=== PATIENT | female | born 1970 | race Caucasian/White ===

== ENCOUNTER 2017-07-15 06:17 | Emergency (ER) | payer MEDICARE ==
[2017-07-15 06:56] LABS: BASOPHILS 0.2 % (0-2); EOSINOPHILS 1.2 % (0-7); HEMATOCRIT 45.2 % (36.0-48.0); HEMOGLOBIN 15.3 g/dL (12-16); IMMATURE GRANULOCYTES 0.2 % (0-5); LYMPHOCYTES 26.5 % (15-50); MCH 32.1 pg (26.0-34.0); MCHC 33.8 g/dL (31.0-37.0); MCV 94.8 fL (80.0-100.0); MEAN PLATELET VOLUME 8.9 fL (7.4-10.4); MONOCYTES 9.1 % (2-11); NEUTROPHILS 62.8 % (40-80); PLATELET COUNT 336 10x3/uL (130-400); RBC 4.77 10x6/uL (4.00-5.40); RDW 12.7 % (11.5-14.5); WBC 5.9 10x3/uL (4.8-10.8)
[2017-07-15 07:07] LABS: ALBUMIN 3.4 g/dL (3.4-5.0); ALKALINE PHOSPHATASE 98 U/L (46-116); ALT (SGPT) 82 U/L (10-68); BILIRUBIN - TOTAL 0.55 mg/dL (0.2-1.3); CALC OSMOLALITY 267 mosm/kg (275-300); CALCIUM 8.9 mg/dL (8.5-10.1); CARBON DIOXIDE 26.1 mmol/L (21.0-32.0); CHLORIDE - SERUM 102 mmol/L (98-107); CREATININE - SERUM 0.6 mg/dL (0.6-1.3); GLUCOSE 77 mg/dL (74-106); SODIUM 135 mmol/L (136-145); UREA NITROGEN 10 mg/dL (7-18); eGFR NON AFRICAN AMERICAN > 90 mL/min (90-120)
== END 2017-07-15 08:03 | disposition home or self-care (01) ==
LOC: D.ER 06:17
PROVIDERS: Emergency Medicine
DX: K52.9 Noninfective gastroenteritis and colitis, unspecified (principal); R51 Headache; F17.200 Nicotine dependence, unspecified, uncomplicated

== ENCOUNTER 2017-09-27 13:08 | Emergency (ER) | payer MEDICARE ==
[2017-09-27 13:44] LABS: BASOPHILS 0.3 % (0-2); EOSINOPHILS 0.6 % (0-7); HEMATOCRIT 47.6 % (36.0-48.0); HEMOGLOBIN 16.1 g/dL (12-16); IMMATURE GRANULOCYTES 0.1 % (0-5); LYMPHOCYTES 44.6 % (15-50); MCH 31.9 pg (26.0-34.0); MCHC 33.8 g/dL (31.0-37.0); MCV 94.4 fL (80.0-100.0); MEAN PLATELET VOLUME 8.7 fL (7.4-10.4); MONOCYTES 7.7 % (2-11); NEUTROPHILS 46.7 % (40-80); PLATELET COUNT 293 10x3/uL (130-400); RBC 5.04 10x6/uL (4.00-5.40); RDW 13.6 % (11.5-14.5); WBC 6.7 10x3/uL (4.8-10.8)
[2017-09-27 13:51] LABS: APPEARANCE CLEAR (CLEAR); BILIRUBIN NEGATIVE (NEGATIVE); COLOR YELLOW (YELLOW); GLUCOSE NEGATIVE (NEGATIVE); KETONE NEGATIVE (NEGATIVE); NITRITE NEGATIVE (NEGATIVE); PH 5.5 (5.0-6.0); PROTEIN NEGATIVE (NEGATIVE); UROBILINOGEN NORMAL (NORMAL)
[2017-09-27 13:59] LABS: ALBUMIN 4.1 g/dL (3.4-5.0); ALKALINE PHOSPHATASE 88 U/L (46-116); ALT (SGPT) 98 U/L (10-68); BILIRUBIN - TOTAL 0.21 mg/dL (0.2-1.3); CALC OSMOLALITY 281 mosm/kg (275-300); CALCIUM 8.8 mg/dL (8.5-10.1); CARBON DIOXIDE 29.4 mmol/L (21.0-32.0); CHLORIDE - SERUM 106 mmol/L (98-107); CREATININE - SERUM 0.6 mg/dL (0.6-1.3); GLUCOSE 82 mg/dL (74-106); POTASSIUM - SERUM 3.7 mmol/L (3.5-5.1); PROTEIN - SERUM 7.4 g/dL (6.4-8.2); SODIUM 143 mmol/L (136-145); UREA NITROGEN 7 mg/dL (7-18); eGFR NON AFRICAN AMERICAN > 90 mL/min (90-120)
[2017-09-27 14:18] LABS: UDS - AMPHET NEGATIVE QUAL (NEGATIVE); UDS - BARB NEGATIVE QUAL (NEGATIVE); UDS - BENZO NEGATIVE QUAL (NEGATIVE); UDS - COCAINE NEGATIVE QUAL (NEGATIVE); UDS - OPIATE NEGATIVE QUAL (NEGATIVE); UDS - PCP NEGATIVE QUAL (NEGATIVE); UDS - THC NEGATIVE QUAL (NEGATIVE)
== END 2017-09-27 18:14 | disposition home or self-care (01) ==
LOC: D.ER 13:08
PROVIDERS: Family Medicine
DX: F10.129 Alcohol abuse with intoxication, unspecified (principal); R51 Headache

== ENCOUNTER 2018-06-07 15:52 | Emergency (ER) | payer MEDICARE ==
[~2018-06-07] VITALS: Ht 177.8 cm; Wt 63.6 kg
[2018-06-07 16:06] VITALS: Ht 177.8 cm; Wt 63.6 kg
[2018-06-07] MEDS ORDERED: CLONAZEPAM1 MG/TAB (16:10)
[2018-06-07 19:15] VITALS: BP 141/80
== END 2018-06-07 19:16 | disposition home or self-care (01) ==
LOC: D.ER 15:52
DX: S00.83XA Contusion of other part of head, initial encounter (principal); S20.219A Contusion of unspecified front wall of thorax, initial encounter; S30.1XXA Contusion of abdominal wall, initial encounter; Y04.2XXA Assault by strike against or bumped into by another person, initial encounter; Y93.89 Activity, other specified; Y92.89 Other specified places as the place of occurrence of the external cause; M54.2 Cervicalgia; R07.9 Chest pain, unspecified; M54.5 Low back pain

== ENCOUNTER 2018-07-10 16:13 | Emergency (ER) | payer MEDICARE ==
[~2018-07-10] VITALS: Ht 177.8 cm; Wt 64.5 kg
[~2018-07-10 16:13] MED LIST: CLONAZEPAM1 MG/TAB
[2018-07-10 16:20] VITALS: Ht 177.8 cm; Wt 64.5 kg
[2018-07-10 16:58] LABS: APPEARANCE CLEAR (CLEAR); BILIRUBIN NEGATIVE (NEGATIVE); COLOR YELLOW (YELLOW); GLUCOSE NEGATIVE (NEGATIVE); KETONE NEGATIVE (NEGATIVE); NITRITE NEGATIVE (NEGATIVE); PROTEIN NEGATIVE (NEGATIVE); UROBILINOGEN NORMAL (NORMAL)
[2018-07-10 17:02] LABS: BASOPHILS 0.2 % (0-2); EOSINOPHILS 1.9 % (0-7); HEMATOCRIT 42.6 % (36.0-48.0); HEMOGLOBIN 14.5 g/dL (12-16); IMMATURE GRANULOCYTES 0.1 % (0-5); LYMPHOCYTES 32.7 % (15-50); MCH 31.7 pg (26.0-34.0); MCV 93.2 fL (80.0-100.0); MONOCYTES 6.4 % (2-11); NEUTROPHILS 58.7 % (40-80); RBC 4.57 10x6/uL (4.00-5.40); RDW 12.7 % (11.5-14.5); WBC 8.6 10x3/uL (4.8-10.8)
[2018-07-10 17:05] LABS: UDS - AMPHET NEGATIVE QUAL (NEGATIVE); UDS - BARB NEGATIVE QUAL (NEGATIVE); UDS - BENZO NEGATIVE QUAL (NEGATIVE); UDS - COCAINE NEGATIVE QUAL (NEGATIVE); UDS - OPIATE NEGATIVE QUAL (NEGATIVE); UDS - PCP NEGATIVE QUAL (NEGATIVE); UDS - THC NEGATIVE QUAL (NEGATIVE)
[2018-07-10 17:11] LABS: PLATELET COUNT 227 10x3/uL (130-400)
[2018-07-10 17:16] LABS: ALBUMIN 3.8 g/dL (3.4-5.0); ALKALINE PHOSPHATASE 81 U/L (46-116); ALT (SGPT) 47 U/L (10-68); CALC OSMOLALITY 280 mosm/kg (275-300); CALCIUM 8.7 mg/dL (8.5-10.1); CARBON DIOXIDE 21.7 mmol/L (21.0-32.0); CHLORIDE - SERUM 106 mmol/L (98-107); CREATININE - SERUM 0.6 mg/dL (0.6-1.3); GLUCOSE 89 mg/dL (74-106); LIPASE 180 U/L (73-393); POTASSIUM - SERUM 4.4 mmol/L (3.5-5.1); SODIUM 141 mmol/L (136-145); UREA NITROGEN 16 mg/dL (7-18); eGFR NON AFRICAN AMERICAN > 90 mL/min (90-120)
[2018-07-10 17:17] LABS: BILIRUBIN - TOTAL 0.09 mg/dL (0.2-1.3); C-REACTIVE PROTEIN < 0.2 mg/dL (0.0-0.9)
[2018-07-10 17:51] VITALS: BP 118/87
== END 2018-07-10 17:51 | disposition home or self-care (01) ==
LOC: D.ER 16:13
PROVIDERS: Family Medicine
DX: R51 Headache (principal); R11.0 Nausea; R42 Dizziness and giddiness; F17.200 Nicotine dependence, unspecified, uncomplicated

== ENCOUNTER 2018-08-18 16:25 | Emergency (ER) | payer MEDICARE ==
[~2018-08-18] VITALS: Ht 177.8 cm; Wt 68.2 kg
[2018-08-18 16:32] VITALS: Ht 177.8 cm; Wt 68.2 kg
[2018-08-18] MEDS ORDERED: ZOFRAN4 MG PO (16:34)
[2018-08-18 18:02] LABS: BASOPHILS 0.2 % (0-2); EOSINOPHILS 3.4 % (0-7); HEMATOCRIT 41.5 % (36.0-48.0); IMMATURE GRANULOCYTES 0.1 % (0-5); LYMPHOCYTES 38.8 % (15-50); MCH 31.9 pg (26.0-34.0); MCHC 33.7 g/dL (31.0-37.0); MCV 94.5 fL (80.0-100.0); MEAN PLATELET VOLUME 8.6 fL (7.4-10.4); MONOCYTES 6.7 % (2-11); NEUTROPHILS 50.8 % (40-80); PLATELET COUNT 250 10x3/uL (130-400); RBC 4.39 10x6/uL (4.00-5.40); RDW 13.7 % (11.5-14.5); WBC 8.3 10x3/uL (4.8-10.8)
[2018-08-18 18:16] LABS: ALBUMIN 3.7 g/dL (3.4-5.0); ALKALINE PHOSPHATASE 85 U/L (46-116); ALT (SGPT) 48 U/L (10-68); BILIRUBIN - TOTAL 0.15 mg/dL (0.2-1.3); CALC OSMOLALITY 286 mosm/kg (275-300); CALCIUM 8.5 mg/dL (8.5-10.1); CARBON DIOXIDE 27.2 mmol/L (21.0-32.0); CHLORIDE - SERUM 107 mmol/L (98-107); CREATININE - SERUM 0.7 mg/dL (0.6-1.3); GLUCOSE 92 mg/dL (74-106); LIPASE 221 U/L (73-393); POTASSIUM - SERUM 4.1 mmol/L (3.5-5.1); PROTEIN - SERUM 7.2 g/dL (6.4-8.2); SODIUM 144 mmol/L (136-145); UREA NITROGEN 13 mg/dL (7-18); eGFR NON AFRICAN AMERICAN > 90 mL/min (90-120)
[2018-08-18] MEDS ORDERED: FIORICET/ESGIC1 TAB PO (18:43)
[2018-08-18 19:14] VITALS: BP 109/73
== END 2018-08-18 19:17 | disposition home or self-care (01) ==
LOC: D.ER 16:25
PROVIDERS: Family Medicine
DX: G43.909 Migraine, unspecified, not intractable, without status migrainosus (principal); R11.0 Nausea; F17.200 Nicotine dependence, unspecified, uncomplicated

== ENCOUNTER 2019-05-31 14:02 | Inpatient (IN) | payer MEDICARE ==
[~2019-05-31] VITALS: Ht 177.8 cm; Wt 64.1 kg
[~2019-05-31 14:02] MED LIST changes: +FIORICET/ESGIC1 TAB PO; +ZOFRAN4 MG PO
--- NOTE | 2019-05-31 15:58 | NUR ---
BLANKET PROVIDED FOR COMFORT AT THIS TIME.
--- NOTE | 2019-05-31 16:25 | NUR ---
PT LEAVING ED FOR ORDERED CT SCAN. NO SIGNS OF DISTRESS NOTED WHEN LEAVING.
[2019-05-31 17:36] LABS: BASOPHILS 0.1 % (0-2); EOSINOPHILS 0.1 % (0-7); HEMATOCRIT 42.5 % (36.0-48.0); HEMOGLOBIN 14.6 g/dL (12-16); IMMATURE GRANULOCYTES 0.3 % (0-5); LYMPHOCYTES 6.3 % (15-50); MCH 31.2 pg (26.0-34.0); MCHC 34.4 g/dL (31.0-37.0); MCV 90.8 fL (80.0-100.0); MEAN PLATELET VOLUME 8.9 fL (7.4-10.4); MONOCYTES 1.8 % (2-11); NEUTROPHILS 91.4 % (40-80); PLATELET COUNT 256 10x3/uL (130-400); RBC 4.68 10x6/uL (4.00-5.40); RDW 13.5 % (11.5-14.5); WBC 14.4 10x3/uL (4.8-10.8)
[2019-05-31 17:46] LABS: APTT 25.4 SECONDS (22.8-39.4); INR 0.91 (0.85-1.17); PROTIME 11.8 SECONDS (11.6-15.0)
[2019-05-31 17:55] LABS: ALBUMIN 3.8 g/dL (3.4-5.0); ALKALINE PHOSPHATASE 91 U/L (46-116); ALT (SGPT) 29 U/L (10-68); BILIRUBIN - TOTAL 0.19 mg/dL (0.2-1.3); CALC OSMOLALITY 277 mosm/kg (275-300); CALCIUM 9.1 mg/dL (8.5-10.1); CARBON DIOXIDE 26.3 mmol/L (21.0-32.0); CHLORIDE - SERUM 104 mmol/L (98-107); CREATININE - SERUM 0.8 mg/dL (0.6-1.3); GLUCOSE 120 mg/dL (74-106); PROTEIN - SERUM 6.5 g/dL (6.4-8.2); SODIUM 137 mmol/L (136-145); UREA NITROGEN 21 mg/dL (7-18); eGFR NON AFRICAN AMERICAN 81 mL/min (90-120)
[2019-05-31 18:08] LABS: CKMB 0.9 U/L (0.0-3.6); CREATINE KINASE 33 UL (21-215)
[2019-05-31 18:09] LABS: C-REACTIVE PROTEIN < 0.2 mg/dL (0.0-0.9); TROPONIN-I < 0.017 ng/mL (0.000-0.060)
--- NOTE | 2019-05-31 18:20 | NUR ---
IMMOBILIZER APPLIED TO THE RLE. PULSES PRESENT AFTER IMMOBILIZER APPLIED.
--- NOTE | 2019-05-31 20:00 | NUR ---
REC'D IN ROOM 2218 PER W/C FROM ER DEPT A 48 Y/O W/FE PER SERVICES DR. GIRALDO/ZHANNA WITH DX RT KNEE PAIN. IV PATENT RT FOREARM OF NS AT 125CC'S/HR DRIVER RETRAINING INSTRUCTOR OF MORPHINE IN USE WITH SETTINGS AT 1MG Q10MIN W/10MG Q4H L/O. BRACE TO RT LEG IN PLACE.
--- NOTE | 2019-05-31 20:45 | NUR ---
REQUESTING A BOLUS AND ZOFRAN. MORPHINE 2MG BOLUS GIVEN PER FLY RAISER LOCKSTITCH MACHINE AND ZOFRAN 4MG IVP GIVEN FOR NAUSEA.
--- NOTE | 2019-05-31 21:15 | NUR ---
REFUSES COLACE. WNATS DISCONNECTED FROM MACHINE TO GO OUTSIDE TO SMOKE.UP AD SHIRIN IN HALLWAY TO SMOKING AREA.
--- NOTE | 2019-05-31 22:15 | NUR ---
RETURNS TO ROOM RECONNECTED TO IV INFUSION. VOIDS WELL.
[2019-05-31 23:00] VITALS: BP 136/80; BMI 20.2
[2019-06-01] VITALS: BP 136/57
--- NOTE | 2019-06-01 | NUR ---
REMAIN AWAKE ALERT PRESSING BONDERIZER OPERATOR AND GETTING INTO LOCKOUT. EXPLAINED AGAIN HOW BONDERIZER OPERATOR OPERATES.
[2019-06-01 00:07] LABS: APPEARANCE CLEAR (CLEAR); COLOR YELLOW (YELLOW)
[2019-06-01 00:08] LABS: BILIRUBIN NEGATIVE (NEGATIVE); GLUCOSE NEGATIVE (NEGATIVE); KETONE NEGATIVE (NEGATIVE); NITRITE NEGATIVE (NEGATIVE); PROTEIN NEGATIVE (NEGATIVE); SPECIFIC GRAVITY 1.015 (1.005-1.020); UROBILINOGEN NORMAL (NORMAL)
--- NOTE | 2019-06-01 03:00 | NUR ---
AWAKE DISCONNECTED FROM IV. UP AD SHIRIN TO SMOKING AREA.
--- NOTE | 2019-06-01 03:35 | NUR ---
RETURNS TO ROOM IV RECONNECTED.
--- NOTE | 2019-06-01 03:49 | NUR ---
C/O NAUSEA ZOFRAN 4MG IVP GIVEN FOR RELIEF. CONTINUES TO USE THE ADMINISTRATOR SOCIAL WELFARE.
[2019-06-01 04:00] VITALS: BP 130/71
--- NOTE | 2019-06-01 05:02 | NUR ---
AWAKE ALERT SITTING UPRIGHT IN BED.
[2019-06-01 06:02] LABS: BASOPHILS 0.1 % (0-2); EOSINOPHILS 0.4 % (0-7); HEMATOCRIT 39.5 % (36.0-48.0); HEMOGLOBIN 13.3 g/dL (12-16); IMMATURE GRANULOCYTES 0.3 % (0-5); LYMPHOCYTES 14.1 % (15-50); MCH 31.2 pg (26.0-34.0); MCHC 33.7 g/dL (31.0-37.0); MCV 92.7 fL (80.0-100.0); MEAN PLATELET VOLUME 9.2 fL (7.4-10.4); MONOCYTES 6.6 % (2-11); NEUTROPHILS 78.5 % (40-80); PLATELET COUNT 254 10x3/uL (130-400); RBC 4.26 10x6/uL (4.00-5.40); RDW 13.7 % (11.5-14.5); WBC 16.5 10x3/uL (4.8-10.8)
[2019-06-01 06:22] LABS: CALC OSMOLALITY 275 mosm/kg (275-300); CALCIUM 8.3 mg/dL (8.5-10.1); CARBON DIOXIDE 26.2 mmol/L (21.0-32.0); CHLORIDE - SERUM 105 mmol/L (98-107); CREATININE - SERUM 0.7 mg/dL (0.6-1.3); GLUCOSE 84 mg/dL (74-106); MAGNESIUM - SERUM 1.7 mg/dL (1.8-2.4); PHOSPHOROUS 2.7 mg/dL (2.5-4.9); POTASSIUM - SERUM 4.3 mmol/L (3.5-5.1); SODIUM 138 mmol/L (136-145); UREA NITROGEN 16 mg/dL (7-18); eGFR NON AFRICAN AMERICAN > 90 mL/min (90-120)
--- NOTE | 2019-06-01 07:19 | NUR ---
ALERT AND ORIENTED. LUNGS CLEAR BILATERALLY IN ALL RITCHIE. HEART SOUNDS S1 AND S2 HEARD IN ALL RITCHIE. BOWEL SOUNDS ACTIVE X 4. SKIN INTACT WITHOUT REDNESS. PAIN IN RIGHT KNEE. STATES MORPHINE PAIN PUMP NOT WORKING. WANTS TO CHANGE MEDICATIONS. WILL CALL DELICATESSEN MANAGER. DENIES FURTHER NEEDS. IV TO RFA PATENT WITHOUT REDNESS. BED LOW. CALL SILVA AND PERSONAL ITEMS IN REACH. WILL CONTINUE TO MONITOR.
[2019-06-01 07:59] VITALS: BP 138/86
[2019-06-01 10:30] VITALS: Ht 177.8 cm; Wt 64.1 kg
--- NOTE | 2019-06-01 10:50 | NUR ---
CONSENTS FOR PROCEDURE SIGNED AND ON CHART. DENIES FURTHER QUESTIONS.
--- NOTE | 2019-06-01 11:30 | NUR ---
SITTING IN CHAIR AT BEDSIDE. DENIES NEEDS. WILL CONTINUE TO MONITOR,.
[2019-06-01 11:55] VITALS: BP 124/82
--- NOTE | 2019-06-01 14:16 | NUR ---
RESTING IN BED. DENIES PAIN. DENIES NEEDS. WILL CONTINUE TO MONITOR.
[2019-06-01 15:31] LABS: UDS - AMPHET NEGATIVE QUAL (NEGATIVE); UDS - BARB NEGATIVE QUAL (NEGATIVE); UDS - BENZO NEGATIVE QUAL (NEGATIVE); UDS - COCAINE NEGATIVE QUAL (NEGATIVE); UDS - OPIATE POSITIVE QUAL (NEGATIVE); UDS - PCP NEGATIVE QUAL (NEGATIVE); UDS - THC NEGATIVE QUAL (NEGATIVE)
[2019-06-01 16:01] VITALS: BP 123/71
--- NOTE | 2019-06-01 17:14 | NUR ---
RESTING IN BED. DENIES PAIN. DENIES NEEDS. WILL CONTINUE TO MONITOR.
--- NOTE | 2019-06-01 20:00 | NUR ---
ASSESSMENT PER FLOWSHEET. PT DISCONNECTS HER IV AND TAKES OFF HER BRACE ON RT LEG. THEN PT WALKS OUT TO HALLWAY AND GETS INTO THE W/C. WANTING TO GO SMOKE. IV RT FOREARM PATENT W/NS AT 125CC'S/HR.CARPENTRY TEACHER OF DILAUDID IN USE W/SETTINGS AT 0.2MG Q10 MIN W/4MG Q4H L/O..REFUSES SCD'S.
--- NOTE | 2019-06-01 20:15 | NUR ---
REQUESTING NAUSEA MED. ZOFRAN 4MG IVP GIVEN FOR NAUSEA.
--- NOTE | 2019-06-01 20:20 | NUR ---
PT HAS LEFT THE FLOOR PER W/C TO GO SMOKE.
--- NOTE | 2019-06-01 21:00 | NUR ---
RETURNS TO ROOM MEDS GIVEN PER NOV.
[2019-06-01 21:09] VITALS: BP 120/60
[2019-06-02] VITALS (11 sets, daily range): BP systolic 115–146; BP diastolic 63–88
--- NOTE | 2019-06-02 | NUR ---
EYES CLOSED RESPIRATIONS WITH EASE AND UNLABORED.NPO FOR SURGERY IN AM.
--- NOTE | 2019-06-02 06:22 | NUR ---
HIBICLEANSE SHOWER SELF CARE DONE WITH LINENS CHANGE PER MUTUEL CASHIER. RESTING IN BED REMAINS NPO FOR SURGERY
[2019-06-02 06:42] LABS: BASOPHILS 0.1 % (0-2); EOSINOPHILS 2.1 % (0-7); HEMATOCRIT 36.7 % (36.0-48.0); HEMOGLOBIN 12.3 g/dL (12-16); IMMATURE GRANULOCYTES 0.2 % (0-5); LYMPHOCYTES 42.6 % (15-50); MCH 30.9 pg (26.0-34.0); MCHC 33.5 g/dL (31.0-37.0); MCV 92.2 fL (80.0-100.0); MEAN PLATELET VOLUME 9.1 fL (7.4-10.4); MONOCYTES 9.5 % (2-11); NEUTROPHILS 45.5 % (40-80); RBC 3.98 10x6/uL (4.00-5.40); RDW 13.5 % (11.5-14.5)
[2019-06-02 06:50] LABS: PLATELET COUNT 199 10x3/uL (130-400); WBC 8.6 10x3/uL (4.8-10.8)
[2019-06-02 07:12] LABS: CALC OSMOLALITY 278 mosm/kg (275-300); CARBON DIOXIDE 28.8 mmol/L (21.0-32.0); CHLORIDE - SERUM 107 mmol/L (98-107); CREATININE - SERUM 0.6 mg/dL (0.6-1.3); GLUCOSE 80 mg/dL (74-106); MAGNESIUM - SERUM 1.7 mg/dL (1.8-2.4); PHOSPHOROUS 2.7 mg/dL (2.5-4.9); POTASSIUM - SERUM 4.4 mmol/L (3.5-5.1); SODIUM 141 mmol/L (136-145); eGFR NON AFRICAN AMERICAN > 90 mL/min (90-120)
[2019-06-02 07:17] LABS: UREA NITROGEN 11 mg/dL (7-18)
--- NOTE | 2019-06-02 07:59 | NUR ---
PATIENT OUT OF ROOM. CASTING HOUSE WORKER AND IV FLUIDS LEFT.
--- NOTE | 2019-06-02 11:22 | NUR ---
SISTER IN ROOM. BROUGHT BARNETT. PATIENT WALKING WITH SISTER. UNHOOKED FROM IV PUMP HERSELF. WCTM
--- NOTE | 2019-06-02 14:31 | NUR ---
PLASMA BLADE SET TO 6/8 BOVIE PAD RIGHT FLANK [id number] EXP 10/13/20 PREPPED FROM TOURNIQUET TO TOES CIRCUMFERENTIALLY WITH HIBICLENS AND ALCOHOL AND THEN CHLORAPREP
--- NOTE | 2019-06-02 15:15 | NUR ---
FAMILY TOOK ME ASIDE AND INFORMED ME THAT PATIENT IS "HEP C POSITIVE. SHIZOEFFECTIVE REFUSES TO TAKE LIBRIUM AND ABILIFY WELL PREVIOUSLY LOST A CHILD." PATIENT IS NOT ON THE FLOOR AT THIS TIME. FAMILY WANTED TO MAKE SURE I WAS AWARE. i SAID I WILL KEEP ALL THAT IN MIND.
--- NOTE | 2019-06-02 19:30 | NUR ---
PT SITTING UP IN BED WITHOUT DISTRESS, AOX4. CPM IN PLACE. PLACED ON AND OFF BEDPAN TO VOID. IV RIGHT FA INFUSING 1/2NS @ 100 WITH DILAUDID GRAIN TRIMMER. REDNESS AND SWELLING TO RIGHT EYE, REQUESTED OINTMENT FOR STYE. SPOKE WITH CONNIE TAVAREZ, RECOMMENDED TO PLACE HOT COMPRESSES OVER EYE. EDUCATED PT. PLACED HOT COMPRESS ON EYE. DRESSING TO RIGHT KNEE CDI. STATES LEG IS STILL NUMB FROM BLOCK. DENIES OTHER NEEDS. CL IN REACH, WILL CTM
[2019-06-03] VITALS: BP 97/64
[2019-06-03 04:00] VITALS: BP 107/60
--- NOTE | 2019-06-03 06:23 | NUR ---
CPM ON @ 0515. PT KEPT TRYING TO MOVE UP IN BED TO WHERE FOOT DID NOT REACH FOOT HOLD OF CPM. TOLD PT IT NEEDED TO STAY LINED UP WITH HER LEG. SHE CONTINUED TO PUSH IT TOWARDS THE END OF BED. REPOSITIONED CPM ON PT LEG WITH SECOND NURSE AND PLACED BLANKET UNDERNEATH THIGH BETWEEN LEG AND CPM TO NOT RUB LEG. LEFT PT ROOM, PT HIT CALL LIGHT LATER, AID ENTERED ROOM. PT HAD CPM DOWN ON END OF BED HANGING OFF EDGE OF BED. AID REMOVED CPM TO HELP PT ONTO BEDPAN AND UPON PT ROLLING OVER PT HAD PINCH BOY FROM CPM ON HER UPPER THIGH WHERE BLANKET HAD MOVED OUT FROM BETWEEN HER AND MACHINE. PT CURRENTLY ON BEDPAN. WILL CTM
[2019-06-03 06:30] LABS: BASOPHILS 0.1 % (0-2); EOSINOPHILS 0.2 % (0-7); HEMATOCRIT 31.4 % (36.0-48.0); HEMOGLOBIN 10.7 g/dL (12-16); IMMATURE GRANULOCYTES 0.3 % (0-5); LYMPHOCYTES 21.2 % (15-50); MCH 31.4 pg (26.0-34.0); MCHC 34.1 g/dL (31.0-37.0); MCV 92.1 fL (80.0-100.0); MONOCYTES 17.8 % (2-11); NEUTROPHILS 60.4 % (40-80); PLATELET COUNT 202 10x3/uL (130-400); RBC 3.41 10x6/uL (4.00-5.40); RDW 13.4 % (11.5-14.5); WBC 10.5 10x3/uL (4.8-10.8)
[2019-06-03 06:48] LABS: CALC OSMOLALITY 273 mosm/kg (275-300); CARBON DIOXIDE 32.3 mmol/L (21.0-32.0); CHLORIDE - SERUM 103 mmol/L (98-107); CREATININE - SERUM 0.6 mg/dL (0.6-1.3); GLUCOSE 114 mg/dL (74-106); MAGNESIUM - SERUM 1.7 mg/dL (1.8-2.4); PHOSPHOROUS 2.4 mg/dL (2.5-4.9); POTASSIUM - SERUM 3.8 mmol/L (3.5-5.1); SODIUM 138 mmol/L (136-145); eGFR NON AFRICAN AMERICAN > 90 mL/min (90-120)
[2019-06-03 06:50] LABS: UREA NITROGEN 5 mg/dL (7-18)
--- NOTE | 2019-06-03 06:58 | NUR ---
PT REFUSES TO HAVE CPM PLACED BACK ON
--- NOTE | 2019-06-03 07:40 | NUR ---
PT RESTING IN BED. CHEST RISING AND FALLING. NO S/S OF ACUTE DISTRESS. CL IN PLACE.
[2019-06-03 08:04] VITALS: BP 104/53
--- NOTE | 2019-06-03 08:50 | NUR ---
CALLED SCOTT TAVAREZ ABOUT PT "UNCONTROL PAIN." ORDERS IN TO DC CAR WASH ATTENDANT PAIN MEDS AAND START PO MEDS. NO S/S OF ACUTE DISTRESS. CL IN PLACE
--- NOTE | 2019-06-03 11:50 | NUR ---
ENCOURAGE PT TO USE CPM. "NO, THE PT AND THE OTHER NURSE'S SAID I COULD DO IT TOMORROW." EXPLAINED TO PT IT IS IMPERITIVE SO THE PT WOULD NOT LOSE MOBILITY. " I WILL LATER. I AM NOT DOING IT TODAY." NO S/S OF ACUTE DISTRESS. CL IN PLACE.
[2019-06-03 12:50] VITALS: BP 111/63
--- NOTE | 2019-06-03 13:30 | NUR ---
SPOKE WITH RONEL IN REGARDS TO PT REFUSING CPM, "NORCO AND PERCOCET NOT WORKING, MY PAIN IS A 10/10. I CAN NOT HANDLE IT." PT TEARFUL. TO FOR VALIUM 5MG 1 TAB Q8PRN. IBUPROFEN 800MG Q8PRN. TOOK PT IBUPROFEN AND VALIUM PT ROLLED EYES AND STATED, "THAT IS NOT GOING TO HELP ME. WHEN CAN I HAVE MORE PAIN MEDICINE." EXPLAINED TO PT THAT SHE WAS UNABLE TO GET ANY AT THE MOMENT AND WE HAD TO SPACE THE MEDICATION.NO S/S OF ACUTE DISTRESS. CL IN PLACE
--- NOTE | 2019-06-03 15:48 | NUR ---
1530 PT REQUESTING PAIN MEDICATION, " MY PAIN IS A 10/10" PT IS CRYING AND UPSET. " I CANT NOT JUST LAY HERE AND HURT." EXPLAINED TO PT THAT I WOULD HAVE TO CALL Sally CRUZ ABOUT PAIN MEDICINE BECAUSE I WAS UNABLE TO ADMINISTER ANY AT THE MOMENT. SPOKE WITH Sally CRUZ WHO DC NORCO AND PERCOCET. TO FOR DILAUDID 4MG Q4PRN. ATARAX 50MG Q6PRN. ADMINISTER DILAUDID AND ATARAX NOW PER Sally CRUZ.
--- NOTE | 2019-06-03 16:03 | MORECARE ---
CASE MANAGEMENT DISCHARGE SUMMARY PATIENT: TOSHA SHARPE UNIT: [id number] ADM DATE: 05/31/19 AGE: 48 : 72 SEX: F ROOM/BED: D.2218 AUTHOR: GEORGE ORTIZ PHYSICIAN: REFERRING PHYSICIAN: ALEXA GIRALDO MD DATE OF SERVICE: 06/03/19 Discharge Plan Patient Name: TOSHA SHARPE [facility] [facility] 1970 Planned Disposition: Home or Self Care Anticipated Discharge Date: Discharge Date: Expected LOS: Initial Reviewer: [email or web address] Initial Review Date: 05/31/2019 Generated: 06/03/19 5:02 pm DCPIA - Discharge Planning Initial Assessment Updated by [email or web address]: Ana Ignacio on 06/03/19 4:00 pm * Is the patient Alert and Oriented? Yes * PCP NONE * [facility] * Preadmission Environment Home Alone * ADLs Independent * Equipment Crutch * List name and contact numbers for known caregivers / representatives who currently or will assist patient after discharge: DMITRI KING [phone] * Verbal permission to speak to the caregivers and representatives has been obtained from the patient. N/A * Community resources currently utilized None * Additional services required to return to the preadmission environment? Yes * Has this patient been hospitalized within the prior 30 days at any hospital? No Patient Name: TOSHA SHARPE Page 58632 at 1603 All edits/amendments must be made on the electronic document DICTATION DATE: 06/03/19 1602 RETAIL MARKETING MANAGER: GEORGE 06/03/19 1602 RPT#: [id number] DC DATE: STATUS: ADM IN [facility] [address] [place] [address] END OF REPORT
--- NOTE | 2019-06-03 16:14 | MORECARE ---
CASE MANAGEMENT DISCHARGE SUMMARY PATIENT: TOSHA SHARPE UNIT: [id number] ADM DATE: 05/31/19 AGE: 48 : 72 SEX: F ROOM/BED: D.4708 AUTHOR: GEORGE ORTIZ PHYSICIAN: REFERRING PHYSICIAN: ALEXA GIRALDO MD DATE OF SERVICE: 06/03/19 Discharge Plan Patient Name: TOSHA SHARPE Facility: [facility]:[place] : 1970 Planned Disposition: Home or Self Care Anticipated Discharge Date: Discharge Date: Expected LOS: Initial Reviewer: [email or web address] Initial Review Date: 05/31/2019 Generated: 06/03/19 5:14 pm Comments DCP- Discharge Planning Updated by [email or web address]: Ana Ignacio on 06/03/19 3:[address] Patient Name: TOSHA SHARPE Admission Status: ER Accout number: [id number] Admission Date: 05-31-2019 : 1970 Admission Diagnosis:UNILATERAL PRIMARY OSTEOARTHRITIS, RIGHT KNEE Attending: ALEXA MAR Current LOS: 3 Anticipated DC Date: Planned Disposition: Home or Self Care Primary Insurance: MEDICARE A & B Discharge Planning Comments: CM met with patient to complete initial dc planning assessment. CM educated patient on the CM role and verbal consent given by patient to complete assessment. Patient lives at home where she stated she is independent at home. At discharge patient plans to return home and feels this is a safe discharge. CM discussed availability of home health, rehab services, and medical equipment. She stated that all she has is crutches at home. She will need a walker and CPM at home. She stated that she planned on going to OP rehab at [facility] I called and made an appointment for Thursday 06/07 at 9:45. I spoke with Marky. Her mother called and asked about inpatient rehab. She does not have anyone to take care of her or drive her to therapy. Per her mother. Patient stated she does?? Patient denied known discharge needs at this time. CM will continue to follow and will assist as needed with dc plans/needs. mom's number is [phone] Application Consultant: Ana Ignacio DCPIA - Discharge Planning Initial Assessment Updated by [email or web address]: Ana Ignacio on 06/03/19 4:00 pm * Is the patient Alert and Oriented? Yes * PCP NONE * Pharmacy [facility] * Preadmission Environment Home Alone * ADLs Independent * Equipment Crutch * List name and contact numbers for known caregivers / representatives who currently or will assist patient after discharge: DMITRI KING [phone] * Verbal permission to speak to the caregivers and representatives has been obtained from the patient. N/A * Community resources currently utilized None * Additional services required to return to the preadmission environment? Yes * Has this patient been hospitalized within the prior 30 days at any hospital? No Last DP export: 06/03/19 3:03 pm Patient Name: TOSHA SHARPE Page [phone] at 1614 All edits/amendments must be made on the electronic document DICTATION DATE: 06/03/191613 LEAD APPLIER: GEORGE 06/03/191613 RPT#: [id number] DC DATE: STATUS: ADM IN [facility] [address] [place] [address] END OF REPORT
[2019-06-03 16:42] VITALS: BP 127/79
--- NOTE | 2019-06-03 18:10 | NUR ---
PT RESTING IN BED REFUSE CPM. ENCOURAGE PT TO PLACE ICE PACK ON KNEE. KNEE AND LEG SWOLLEN. CHANGED DRESSING PER MD ORDER. NO S/S OF ACUTE DISTRESS. CL IN PLACE.
--- NOTE | 2019-06-03 18:42 | NUR ---
PT RESTING IN BED. FRIEND AT BEDSIDE. CL IN PLACE.
--- NOTE | 2019-06-03 19:15 | NUR ---
RECEIVED CARE FROM DAY NURSE. LYING IN BED WATCHING TV. NO NEEDS VOICED AT THIS TIME. CALL LIGHT AT SIDE. IV SL TO RIGHT FA.
[2019-06-03 20:00] VITALS: BP 116/71; BP 127/87
[2019-06-04] VITALS: BP 131/68
--- NOTE | 2019-06-04 00:32 | NUR ---
I have reviewed this patient and I concur with the Shift Assessment completed by the Licensed Practical Nurse today this shift.
[2019-06-04 04:00] VITALS: BP 127/76
[2019-06-04 05:35] LABS: BASOPHILS 0.1 % (0-2); HEMATOCRIT 31.6 % (36.0-48.0); HEMOGLOBIN 10.5 g/dL (12-16); IMMATURE GRANULOCYTES 0.3 % (0-5); LYMPHOCYTES 20.4 % (15-50); MCH 30.3 pg (26.0-34.0); MCHC 33.2 g/dL (31.0-37.0); MCV 91.1 fL (80.0-100.0); MONOCYTES 16.2 % (2-11); PLATELET COUNT 200 10x3/uL (130-400); RBC 3.47 10x6/uL (4.00-5.40); RDW 13.2 % (11.5-14.5); WBC 11.4 10x3/uL (4.8-10.8)
[2019-06-04 05:52] LABS: CALC OSMOLALITY 271 mosm/kg (275-300); CALCIUM 8.2 mg/dL (8.5-10.1); CARBON DIOXIDE 30.1 mmol/L (21.0-32.0); CHLORIDE - SERUM 101 mmol/L (98-107); CREATININE - SERUM 0.7 mg/dL (0.6-1.3); GLUCOSE 135 mg/dL (74-106); MAGNESIUM - SERUM 1.7 mg/dL (1.8-2.4); PHOSPHOROUS 2.3 mg/dL (2.5-4.9); POTASSIUM - SERUM 3.5 mmol/L (3.5-5.1); SODIUM 136 mmol/L (136-145); eGFR NON AFRICAN AMERICAN > 90 mL/min (90-120)
[2019-06-04 05:56] LABS: UREA NITROGEN 7 mg/dL (7-18)
--- NOTE | 2019-06-04 07:45 | NUR ---
PT RESTING IN BED. "WHEN CAN I HAVE PAIN MEDICINE?" EXPLAINED TO PT IT WAS NOT TIME. ASSITED PT UP TO BR. PT HELD ONTO SANON AND REFUSED TO MOVE R LEG. ENCOURAGED PT TO USE R LEG AND TO PUT SOME WEIGHT ON IT. PT REFUSED CPM."I WILL DO IT WHEN I GET SOME PAIN MEDICINE." PT TEMP 100.2. REPORTED TO DAYSI CHAVEZ ON PT CURRENT SITUATION AND TEMP. NO S/S OF ACUTE DISTRESS. CL IN PLACE.
[2019-06-04 08:13] VITALS: BP 140/76
--- NOTE | 2019-06-04 09:00 | NUR ---
EDUCATED PT OF IMPORATANCE OF GETTING ON CPM. PT REFUSED. " I WILL AFTER PAIN MEDICINE." NO S/S OF ACUTE DISTRESS. CL IN PLACE.
--- NOTE | 2019-06-04 10:30 | NUR ---
TRIED TO ENCOURAGE PT TO USE CPM. PT REFUSED. NO S/S OF ACUTE DISTRESS. CL INPLACE.
[2019-06-04 13:21] VITALS: BP 133/75
--- NOTE | 2019-06-04 15:30 | NUR ---
PT OFF FLOOR WITH MOTHER IN WC. NO S/S OF ACUTE DISTRESS. CL IN PLACE.
[2019-06-04 16:11] VITALS: BP 121/78
--- NOTE | 2019-06-04 18:59 | NUR ---
PT RESTING IN BED. DILAUDID AND ZOFRAN GIVEN NEEDED PER MD ORDER. NO S/S OF ACUTE DISTRESS. CL IN PLACE.
--- NOTE | 2019-06-04 19:15 | NUR ---
RECEIVED CARE FROM DAY NURSE. SITTING IN BED WATCHING TV. CALL LIGHT AT SIDE. NO NEEDS VOICED AT THIS TIME.
[2019-06-04 19:55] VITALS: BP 115/64
[2019-06-05 00:15] VITALS: BP 117/66
--- NOTE | 2019-06-05 00:20 | NUR ---
I have reviewed this patient and I concur with the Shift Assessment completed by the Licensed Practical Nurse today this shift.
[2019-06-05 04:27] VITALS: BP 109/66
[2019-06-05 06:07] LABS: BASOPHILS 0.2 % (0-2); EOSINOPHILS 1.9 % (0-7); HEMATOCRIT 30.2 % (36.0-48.0); HEMOGLOBIN 10.1 g/dL (12-16); IMMATURE GRANULOCYTES 0.6 % (0-5); LYMPHOCYTES 27.8 % (15-50); MCH 30.5 pg (26.0-34.0); MCHC 33.4 g/dL (31.0-37.0); MCV 91.2 fL (80.0-100.0); MONOCYTES 13.9 % (2-11); NEUTROPHILS 55.6 % (40-80); PLATELET COUNT 220 10x3/uL (130-400); RBC 3.31 10x6/uL (4.00-5.40); RDW 13.4 % (11.5-14.5); WBC 11.4 10x3/uL (4.8-10.8)
[2019-06-05 06:25] LABS: CALC OSMOLALITY 272 mosm/kg (275-300); CALCIUM 8.2 mg/dL (8.5-10.1); CHLORIDE - SERUM 102 mmol/L (98-107); CREATININE - SERUM 0.6 mg/dL (0.6-1.3); GLUCOSE 95 mg/dL (74-106); MAGNESIUM - SERUM 1.7 mg/dL (1.8-2.4); POTASSIUM - SERUM 3.9 mmol/L (3.5-5.1); SODIUM 138 mmol/L (136-145); eGFR NON AFRICAN AMERICAN > 90 mL/min (90-120)
[2019-06-05 06:28] LABS: PHOSPHOROUS 2.9 mg/dL (2.5-4.9); UREA NITROGEN 5 mg/dL (7-18)
--- NOTE | 2019-06-05 07:30 | NUR ---
ALERT AND ORIENTED, UP WITH WALKER IN FRONT OF SINK. DENIES ANY NEEDS AT THIS TIME. CALL LIGHT IN REACH. WILL CONTINUE TO MONITOR.
[2019-06-05 08:03] VITALS: BP 122/67
[2019-06-05 11:48] VITALS: BP 117/75
[2019-06-05] MEDS ORDERED: DILAUDID4 MG PO (13:57)
[2019-06-05] MEDS ORDERED: ELIQUIS2.5 MG PO (13:58)
--- NOTE | 2019-06-05 14:19 | OP ---
PATIENT NAME: TOSHA SHARPE MEDICAL RECORD: [id number] :[birth year] LOCATION:D.[facility] [id number] ADMISSION DATE:05/31/19 SURGEON: LESLIE CHAO MD DATE OF OPERATION: 06/02/2019 PREOPERATIVE DIAGNOSIS: Painful fixed and locked arthritic right knee. POSTOPERATIVE DIAGNOSIS: Painful fixed and locked arthritic right knee. PROCEDURE: Right total knee arthroplasty. SURGEON: Leslie Chao MD ADJUNCT FACULTY: Mahamed Guerra INTRAOPERATIVE COMPLICATIONS: None. SUMMARY OF PATHOLOGIC FINDINGS: Extreme osteoarthritis of the right knee as noted at the time of arrival to the ER. INDICATIONS: This is a 48-year-old female who had a fixed locked knee that was painful beyond the ability to use it. Attempts in the past have included but not limited to all attempted measures to maintain ambulatory status. She did present to the ER with a fixed locked knee and severe pain. She was admitted for pain control and scheduled for total knee arthroplasty. After discussing the risks, hazards, and benefits associated with it, she understood and wishes to proceed. IMPLANTS USED: Phillip triathlon total knee arthroplasty, press fit size 5 distal femur, size 5 tibial baseplate, size 11 tibial insert, size 9 x 33 press fit patella. OPERATIVE SUMMARY IN DETAIL: After obtaining the appropriate preoperative orthopedic surgery consent as well as anesthetic consultation, evaluation and clearance, the patient was brought to the operating room and placed on the operating table in supine position. After general laryngeal mask airway was administered, tourniquet was placed about the proximal aspect of the right lower extremity. Right lower extremity was then prepped and draped in routine sterile fashion. The leg was elevated and exsanguinated to 350 mmHg. Midline incision was taken down for paramedian arthrotomy. Patella was everted, distal femur was exposed. Soft tissue excision was done in the usual fashion. An intramedullary guide hole was created for distal intramedullary guided resection. A distal femoral resection was then followed by complete exposure of the proximal tibia for the soft tissue removal. Intramedullary guide hole was created again and then the proximal tibia was resected. Appropriate measurements were taken. Chamfer cuts were made. Trials were put into place corresponding to the above final components. This was taken through range of motion and found to be stable in all planes. Final distal and proximal tibial preparations were then followed by excision of the arthritic aspect of the patella, which was then made final preparation for press fit. The knee cavity was irrigated to remove all fragments. Bone ends were dried. The components were then tamped into place with good fit and fill taken through range of motion and found to be stable in all planes. The knee was then filled with a gram of vancomycin, a gram of tobramycin, closed #2 Ethibond by Mahamed Guerra and #1 Vicryl with skin sourav. Sterile dressings were applied. The patient was awakened, taken to recovery OPERATIVE REPORT [id number] TOSHA SHARPE room in stable condition. All final needle and sponge counts were correct. TRANSINT:[id number] Voice Confirmation ID: [id number] DOCUMENT ID: [id number] ZHANNA MCELROY, LESLIE WATERS at 1419 CC: [id number] DICTATION DATE: 06/03/19904 PARA PROFESSIONAL: 06/03/19 0934 ADM IN [facility] [address] [id number]
[2019-06-05] MEDS ORDERED: Nicoderm [PBKC] TRANSDERM (14:28)
--- NOTE | 2019-06-05 15:32 | MORECARE ---
CASE MANAGEMENT DISCHARGE SUMMARY PATIENT: TOSHA SHAPRE UNIT: [id number] ADM DATE: 05/31/19 AGE: 48 : 72 SEX: F ROOM/BED: D.4588 AUTHOR: GEORGE ORTIZ PHYSICIAN: REFERRING PHYSICIAN: ALEXA GIRALDO MD DATE OF SERVICE: 06/05/19 Discharge Plan Patient Name: TOSHA SHARPE Facility: [facility]:[place] : 1970 Planned Disposition: Home or Self Care Anticipated Discharge Date: 06/05/19 Discharge Date: Expected LOS: 5 Initial Reviewer: [email or web address] Initial Review Date: 05/31/2019 Generated: 06/05/19 4:32 pm Comments DCP- Discharge Planning Updated by [email or web address]: Ana Ignacio on 06/03/19 3:[address] Patient Name: TOSHA SHARPE Admission Status: ER Accout number: [id number] Admission Date: 05-31-2019 : 1970 Admission Diagnosis:UNILATERAL PRIMARY OSTEOARTHRITIS, RIGHT KNEE Attending: ALEXA MAR Current LOS: 3 Anticipated DC Date: Planned Disposition: Home or Self Care Primary Insurance: MEDICARE A & B Discharge Planning Comments: CM met with patient to complete initial dc planning assessment. CM educated patient on the CM role and verbal consent given by patient to complete assessment. Patient lives at home where she stated she is independent at home. At discharge patient plans to return home and feels this is a safe discharge. CM discussed availability of home health, rehab services, and medical equipment. She stated that all she has is crutches at home. She will need a walker and CPM at home. She stated that she planned on going to OP rehab at [facility] I called and made an appointment for Thursday 06/07 at 9:45. I spoke with Marky. Her mother called and asked about inpatient rehab. She does not have anyone to take care of her or drive her to therapy. Per her mother. Patient stated she does?? Patient denied known discharge needs at this time. CM will continue to follow and will assist as needed with dc plans/needs. mom's number is [phone] Crime Prevention Worker: nAa Ignacio DCPIA - Discharge Planning Initial Assessment Updated by [email or web address]: Ana Ignacio on 06/03/19 4:00 pm * Is the patient Alert and Oriented? Yes * PCP NONE * Pharmacy [facility] * Preadmission Environment Home Alone * ADLs Independent * Equipment Crutch * List name and contact numbers for known caregivers / representatives who currently or will assist patient after discharge: DMITRI KING [phone] * Verbal permission to speak to the caregivers and representatives has been obtained from the patient. N/A * Community resources currently utilized None * Additional services required to return to the preadmission environment? Yes * Has this patient been hospitalized within the prior 30 days at any hospital? No Last DP export: 06/03/19 3:14 pm Patient Name: TOSHA SHARPE Page 48192 at 1532 All edits/amendments must be made on the electronic document DICTATION DATE: 06/05/19 153 SHANK THREADER: GEORGE 06/05/19 153 RPT#: [id number] DC DATE: STATUS: ADM IN [facility] [address] [place] [address] END OF REPORT
--- NOTE | 2019-06-05 15:58 | MORECARE ---
CASE MANAGEMENT DISCHARGE SUMMARY PATIENT: TOSHA SHARPE UNIT: [id number] ADM DATE: 05/31/19 AGE: 48 : 72 SEX: F ROOM/BED: D.2218 AUTHOR: GEORGE ORTIZ PHYSICIAN: REFERRING PHYSICIAN: ALEXA GIRALDO MD DATE OF SERVICE: 06/05/19 Discharge Plan Patient Name: TOSHA SHARPE Facility: [facility]:[place] : 1970 Planned Disposition: Home or Self Care Anticipated Discharge Date: 06/05/19 Discharge Date: Expected LOS: 5 Initial Reviewer: [email or web address] Initial Review Date: 05/31/2019 Generated: 06/05/19 4:58 pm Comments DCP- Discharge Planning Updated by [email or web address]: Yumiko Rivera on 06/05/19 2:[address] CM RECEIVED NOTIFICATION OF DISCHARGE FOR TODAY. THIS PATIENT WILL NEED A WALKER. CM MET WITH THE PATIENT AT THE BEDSIDE. SHE WANTS [facility] PROVIDER. TC [employer]. REC CB FROM [facility]. [facility] ONLY DELIVERS WALKERS THURSDAY THRU THURSDAY. CM ADVISED THE PATIENT. CM TO CALL [facility] ([facility]). TC TO [facility]. REC CB FROM [facility]. HE SPOKE WITH HIS HEAD ANIMAL TRAINER. THEY ARE NOT SURE THEY HAVE A WALKER IN THE STORE. CANNOT ASSIST TODAY. TC TO [facility]. REC CB FROM [facility]. [facility] DOES NOT DELIVER WALKERS ON THE WEEKEND ONLY THURSDAY THRU FRIDAYS. TC TO [facility]. SPOKE W/ SERVICE. AWAIT CB. DCP- Discharge Planning Updated by [id number]: Ana Ignacio on 06/03/19 3:[address] Patient Name: TOSHA SHARPE Admission Status: ER Accout number: [id number] Admission Date: 05-31-2019 : 1970 Admission Diagnosis:UNILATERAL PRIMARY OSTEOARTHRITIS, RIGHT KNEE Attending: ALEXA MAR Current LOS: 3 Anticipated DC Date: Planned Disposition: Home or Self Care Primary Insurance: MEDICARE A & B Discharge Planning Comments: CM met with patient to complete initial dc planning assessment. CM educated patient on the CM role and verbal consent given by patient to complete assessment. Patient lives at home where she stated she is independent at home. At discharge patient plans to return home and feels this is a safe discharge. CM discussed availability of home health, rehab services, and medical equipment. She stated that all she has is crutches at home. She will need a walker and CPM at home. She stated that she planned on going to OP rehab at [facility] I called and made an appointment for Thursday 06/07 at 9:45. I spoke with Marky. Her mother called and asked about inpatient rehab. She does not have anyone to take care of her or drive her to therapy. Per her mother. Patient stated she does?? Patient denied known discharge needs at this time. CM will continue to follow and will assist as needed with dc plans/needs. mom's number is [phone] M1 Armor Crewman: Ana Ignacio DCPIA - Discharge Planning Initial Assessment Updated by [email or web address]: Ana Ignacio on 06/03/19 4:00 pm * Is the patient Alert and Oriented? Yes * PCP NONE * [facility] * Preadmission Environment Home Alone * ADLs Independent * Equipment Crutch * List name and contact numbers for known caregivers / representatives who currently or will assist patient after discharge: DMITRI KING [phone] * Verbal permission to speak to the caregivers and representatives has been obtained from the patient. N/A * Community resources currently utilized None * Additional services required to return to the preadmission environment? Yes * Has this patient been hospitalized within the prior 30 days at any hospital? No Last DP export: 06/05/19 2:32 pm Patient Name: TOSHA SHARPE Page 14540 at 1558 All edits/amendments must be made on the electronic document DICTATION DATE: 06/05/191556 FLORIST HELPER: GEORGE 06/05/191556 RPT#: [id number] DC DATE: STATUS: ADM IN [facility] [address] [place] [address] END OF REPORT
--- NOTE | 2019-06-05 16:17 | MORECARE ---
CASE MANAGEMENT DISCHARGE SUMMARY PATIENT: TOSHA SHARPE UNIT: [id number] ADM DATE: 05/31/19 AGE: 48 : 72 SEX: F ROOM/BED: D.4188 AUTHOR: ANGELDOC PHYSICIAN: REFERRING PHYSICIAN: ALEXA GIRALDO MD DATE OF SERVICE: 06/05/19 Discharge Plan Patient Name: TOSHA SHARPE Facility: [facility]:[place] : 1970 Planned Disposition: Home or Self Care Anticipated Discharge Date: 06/05/19 Discharge Date: Expected LOS: 5 Initial Reviewer: [email or web address] Initial Review Date: 05/31/2019 Generated: 06/05/19 5:17 pm Comments DCP- Discharge Planning Updated by [email or web address]: Yumiko Rivera on 06/05/19 3:[address] CM UPDATED THE PATIENT ON THE WALKER PROCUREMENT PROBLEM. I HAVE A CALL OUT TO [facility]. AWAITING CB. PATIENT CALLED HER MOTHER. SHE CAN BORROW A WALKER FOR TONIGHT. SHE STATES TO HAVE A PROVIDER DELIVER HER A WALKER IN THE AM. DCP- Discharge Planning Updated by [email or web address]: Yumiko Rivera on 06/05/19 2:[address] CM RECEIVED NOTIFICATION OF DISCHARGE FOR TODAY. THIS PATIENT WILL NEED A WALKER. CM MET WITH THE PATIENT AT THE BEDSIDE. SHE WANTS [facility] PROVIDER. TC [facility]. REC CB FROM [facility]. [facility] ONLY DELIVERS WALKERS THURSDAY THRU THURSDAY. CM ADVISED THE PATIENT. CM TO CALL [facility]. TC TO [facility]. REC CB FROM [facility]. HE SPOKE WITH HIS DICE SPOTTER. THEY ARE NOT SURE THEY HAVE A WALKER IN THE STORE. CANNOT ASSIST TODAY. TC TO [facility]. REC CB FROM [facility]. [facility] DOES NOT DELIVER WALKERS ON THE WEEKEND ONLY THURSDAY THRU FRIDAYS. TC TO [facility]. SPOKE W/ SERVICE. AWAIT CB. DCP- Discharge Planning Updated by [email or web address]: Ana Ignacio on 06/03/19 3:[address] Patient Name: TOSHA SHARPE Admission Status: ER Accout number: [id number] Admission Date: 05-31-2019 : 1970 Admission Diagnosis:UNILATERAL PRIMARY OSTEOARTHRITIS, RIGHT KNEE Attending: ALEXA MAR Current LOS: 3 Anticipated DC Date: Planned Disposition: Home or Self Care Primary Insurance: MEDICARE A & B Discharge Planning Comments: CM met with patient to complete initial dc planning assessment. CM educated patient on the CM role and verbal consent given by patient to complete assessment. Patient lives at home where she stated she is independent at home. At discharge patient plans to return home and feels this is a safe discharge. CM discussed availability of home health, rehab services, and medical equipment. She stated that all she has is crutches at home. She will need a walker and CPM at home. She stated that she planned on going to OP rehab at [facility] I called and made an appointment for Thursday 06/07 at 9:45. I spoke with Marky. Her mother called and asked about inpatient rehab. She does not have anyone to take care of her or drive her to therapy. Per her mother. Patient stated she does?? Patient denied known discharge needs at this time. CM will continue to follow and will assist as needed with dc plans/needs. mom's number is [phone] Telephone Sales Representative: Ana Ignacio DCPIA - Discharge Planning Initial Assessment Updated by [email or web address]: Ana Ignacio on 06/03/19 4:00 pm * Is the patient Alert and Oriented? Yes * PCP NONE * [facility] * Preadmission Environment Home Alone * ADLs Independent * Equipment Crutch * List name and contact numbers for known caregivers / representatives who currently or will assist patient after discharge: DMITRI KING [phone] * Verbal permission to speak to the caregivers and representatives has been obtained from the patient. N/A * Community resources currently utilized None * Additional services required to return to the preadmission environment? Yes * Has this patient been hospitalized within the prior 30 days at any hospital? No Last DP export: 06/05/19 2:58 pm Patient Name: TOSHA SHARPE Page 51847 at 1617 All edits/amendments must be made on the electronic document DICTATION DATE: 06/05/191615 RATE REVIEWER: GEORGE 06/05/191615 RPT#: [id number] DC DATE: STATUS: ADM IN [address] [facility] [place] [address] END OF REPORT
--- NOTE | 2019-06-05 16:20 | NUR ---
PATIENT DISCHARGED HOME VIA WHEELCHAIR WITH FAMILY. DISCONTINUED IV, CATHETER TIP INTACT. WENT OVER DISCHARGE INSTRUCTIONS WITH PATIENT, PATIENT VERBALIZED UNDERSTANDING. DENIES ANY NEEDS.
--- NOTE | 2019-06-07 10:01 | MORECARE ---
CASE MANAGEMENT DISCHARGE SUMMARY PATIENT: TOSHA SHARPE UNIT: [id number] ADM DATE: 05/31/19 AGE: 48 : 72 SEX: F ROOM/BED: D.1228 AUTHOR: ANGELDOC PHYSICIAN: REFERRING PHYSICIAN: ALEXA GIRALDO MD DATE OF SERVICE: 06/07/19 Discharge Plan Patient Name: TOSHA SHARPE Facility: [facility]:[place] : 1970 Planned Disposition: Home or Self Care Anticipated Discharge Date: 06/05/19 Discharge Date: 06/05/2019 Expected LOS: 5 Initial Reviewer: [email or web address] Initial Review Date: 05/31/2019 Generated: 06/07/19 11:01 am Comments DCP- Discharge Planning Updated by [email or web address]: Yumiko Rivera on 06/05/19 3:[address] CM UPDATED THE PATIENT ON THE WALKER PROCUREMENT PROBLEM. I HAVE A CALL OUT TO [facility]. AWAITING CB. PATIENT CALLED HER MOTHER. SHE CAN BORROW A WALKER FOR TONIGHT. SHE STATES TO HAVE A PROVIDER DELIVER HER A WALKER IN THE AM. DCP- Discharge Planning Updated by [email or web address]: Yumiko Rivera on 06/05/19 2:[address] CM RECEIVED NOTIFICATION OF DISCHARGE FOR TODAY. THIS PATIENT WILL NEED A WALKER. CM MET WITH THE PATIENT AT THE BEDSIDE. SHE WANTS [facility] PROVIDER. TC [facility]. REC CB FROM [facility]. [facility] ONLY DELIVERS WALKERS THURSDAY THRU THURSDAY. CM ADVISED THE PATIENT. CM TO CALL [facility]. TC TO [facility]. REC CB FROM [facility]. HE SPOKE WITH HIS LUMBER TALLIER. THEY ARE NOT SURE THEY HAVE A WALKER IN THE STORE. CANNOT ASSIST TODAY. TC TO [facility]. REC CB FROM [facility]. [facility] DOES NOT DELIVER WALKERS ON THE WEEKEND ONLY THURSDAY THRU FRIDAYS. [facility]. AWAIT CB. DCP- Discharge Planning Updated by [id number]: Ana Ignacio on 06/03/19 3:[address] Patient Name: OTSHA SHARPE Admission Status: ER Accout number: [id number] Admission Date: 05-31-2019 : 1970 Admission Diagnosis:UNILATERAL PRIMARY OSTEOARTHRITIS, RIGHT KNEE Attending: ALEXA MAR Current LOS: 3 Anticipated DC Date: Planned Disposition: Home or Self Care Primary Insurance: MEDICARE A & B Discharge Planning Comments: CM met with patient to complete initial dc planning assessment. CM educated patient on the CM role and verbal consent given by patient to complete assessment. Patient lives at home where she stated she is independent at home. At discharge patient plans to return home and feels this is a safe discharge. CM discussed availability of home health, rehab services, and medical equipment. She stated that all she has is crutches at home. She will need a walker and CPM at home. She stated that she planned on going to OP rehab at [facility] I called and made an appointment for Thursday 06/07 at 9:45. I spoke with Marky. Her mother called and asked about inpatient rehab. She does not have anyone to take care of her or drive her to therapy. Per her mother. Patient stated she does?? Patient denied known discharge needs at this time. CM will continue to follow and will assist as needed with dc plans/needs. mom's number is [phone] Director Of Sales Marketing: Ana Ignacio DCPIA - Discharge Planning Initial Assessment Updated by [email or web address]: Ana Ignacio on 06/03/19 4:00 pm * Is the patient Alert and Oriented? Yes * PCP NONE * [facility] * Preadmission Environment Home Alone * ADLs Independent * Equipment Crutch * List name and contact numbers for known caregivers / representatives who currently or will assist patient after discharge: DMITRI KING [phone] * Verbal permission to speak to the caregivers and representatives has been obtained from the patient. N/A * Community resources currently utilized None * Additional services required to return to the preadmission environment? Yes * Has this patient been hospitalized within the prior 30 days at any hospital? No Last DP export: 06/05/19 3:17 pm Patient Name: TOSHA SHARPE Page 04999 at 1001 All edits/amendments must be made on the electronic document DICTATION DATE: 06/07/19 1001 SYSTEM CONTROLLER: GEORGE 06/07/19 1001 RPT#: [id number] DC DATE:06/05/19 STATUS: DIS IN [facility] [address] [place] [address] END OF REPORT
--- NOTE | 2019-06-07 12:01 | MORECARE ---
CASE MANAGEMENT DISCHARGE SUMMARY PATIENT: TOSHA SHARPE UNIT: [id number] ADM DATE: 05/31/19 AGE: 48 : 72 SEX: F ROOM/BED: D.7967 AUTHOR: ANGEL,DOC PHYSICIAN: REFERRING PHYSICIAN: ALEXA GIRALDO MD DATE OF SERVICE: 06/07/19 Discharge Plan Patient Name: TOSHA SHARPE Facility: [facility]:[place] : 1970 Planned Disposition: Home or Self Care Anticipated Discharge Date: 06/05/19 Discharge Date: 06/05/2019 Expected LOS: 5 Initial Reviewer: [email or web address] Initial Review Date: 05/31/2019 Generated: 06/07/19 1:01 pm Comments DCP- Discharge Planning Updated by [email or web address]: Yumiko Rivera on 06/07/19 10:[address] LATE ENTRY 92906/06/19 TELEPHONE CALL FOLLOW UP TO [facility] FOR WHEELED WALKER. SPOKE W/ STAFF. FAXED FACE SHEET, OP REPORT, HISTORY AND PHYSICAL AND MD ORDER TO [phone]. WALKER TO BE DELIVERED TO THE PATIENT HOME 06/06/19. DCP- Discharge Planning Updated by [id number]: Yumiko Rivera on 06/05/19 3:[address] CM UPDATED THE PATIENT ON THE WALKER PROCUREMENT PROBLEM. I HAVE A CALL OUT TO [facility]. AWAITING CB. PATIENT CALLED HER MOTHER. SHE CAN BORROW A WALKER FOR TONIGHT. SHE STATES TO HAVE A PROVIDER DELIVER HER A WALKER IN THE AM. DCP- Discharge Planning Updated by [email or web address]: Yumiko Rivera on 06/05/19 2:[address] CM RECEIVED NOTIFICATION OF DISCHARGE FOR TODAY. THIS PATIENT WILL NEED A WALKER. CM MET WITH THE PATIENT AT THE BEDSIDE. SHE WANTS [facility] PROVIDER. [facility]. REC CB FROM [facility]. [facility] ONLY DELIVERS WALKERS THURSDAY THRU THURSDAY. CM ADVISED THE PATIENT. [facility]. TC TO [facility]. REC CB FROM [facility]. HE SPOKE WITH HIS MANAGER PUBLIC. THEY ARE NOT SURE THEY HAVE A WALKER IN THE STORE. CANNOT ASSIST TODAY. TC TO [facility]. REC CB FROM [facility]. [facility] DOES NOT DELIVER WALKERS ON THE WEEKEND ONLY THURSDAY THRU FRIDAYS. TC TO [facility]. SPOKE W/ SERVICE. AWAIT CB. DCP- Discharge Planning Updated by [id number]: Ana Ignacio on 06/03/19 3:[address] Patient Name: TOSHA SHARPE Admission Status: ER Accout number: [id number] Admission Date: 05-31-2019 : 1970 Admission Diagnosis:UNILATERAL PRIMARY OSTEOARTHRITIS, RIGHT KNEE Attending: ALEXA MAR Current LOS: 3 Anticipated DC Date: Planned Disposition: Home or Self Care Primary Insurance: MEDICARE A & B Discharge Planning Comments: CM met with patient to complete initial dc planning assessment. CM educated patient on the CM role and verbal consent given by patient to complete assessment. Patient lives at home where she stated she is independent at home. At discharge patient plans to return home and feels this is a safe discharge. CM discussed availability of home health, rehab services, and medical equipment. She stated that all she has is crutches at home. She will need a walker and CPM at home. She stated that she planned on going to OP rehab at [facility] I called and made an appointment for Thursday 06/07 at 9:45. I spoke with Marky. Her mother called and asked about inpatient rehab. She does not have anyone to take care of her or drive her to therapy. Per her mother. Patient stated she does?? Patient denied known discharge needs at this time. CM will continue to follow and will assist as needed with dc plans/needs. mom's number is [phone] Field Representative/Health Education: Ana Ignacio DCPIA - Discharge Planning Initial Assessment Updated by [email or web address]: Ana Ignacio on 06/03/19 4:00 pm * Is the patient Alert and Oriented? Yes * PCP NONE * [facility] * Preadmission Environment Home Alone * ADLs Independent * Equipment Crutch * List name and contact numbers for known caregivers / representatives who currently or will assist patient after discharge: DMITRI KING [phone] * Verbal permission to speak to the caregivers and representatives has been obtained from the patient. N/A * Community resources currently utilized None * Additional services required to return to the preadmission environment? Yes * Has this patient been hospitalized within the prior 30 days at any hospital? No Last DP export: 06/07/19 9:01 a Patient Name: TOSHA SHARPE Page [phone] at 1201 All edits/amendments must be made on the electronic document DICTATION DATE: 06/07/19 120 MEDICAL PRACTICE MANAGER: GEORGE 06/07/19 1201 RPT#: [id number] DC DATE:06/05/19 STATUS: [facility] [address] [place] [address] END OF REPORT
== END 2019-06-05 16:59 | disposition home or self-care (01) | DRG 470 ==
LOC: D.ER 14:02 → D.MS 17:10
PROVIDERS: Family Medicine; Orthopaedic Surgery; ADMIT Family Medicine Adult Medicine; ATTEND Family Medicine Adult Medicine
PROC: 0SRC0J9 Replacement of Right Knee Joint with Synthetic Substitute, Cemented, Open Approach (ICD-10-PCS; principal; 2019-06-02 13:00)
DX: M17.11 Unilateral primary osteoarthritis, right knee (principal); F17.203 Nicotine dependence unspecified, with withdrawal; I10 Essential (primary) hypertension; F41.9 Anxiety disorder, unspecified

== ENCOUNTER 2019-06-12 08:51 | Emergency (ER) | payer MEDICARE ==
[~2019-06-12] VITALS: Ht 177.8 cm; Wt 63.6 kg
[~2019-06-12 08:51] MED LIST changes: +DILAUDID4 MG PO; +ELIQUIS2.5 MG PO; +Nicoderm [PBKC] TRANSDERM
[2019-06-12 08:52] VITALS: Ht 177.8 cm; Wt 63.6 kg
[2019-06-12] MEDS ORDERED: DILAUDID4 MG PO (09:03)
[2019-06-12] MEDS ORDERED: PHENERGAN25 M1 PO (09:03)
[2019-06-12 10:08] VITALS: BP 152/70
== END 2019-06-12 10:09 | disposition home or self-care (01) ==
LOC: D.ER 08:51
DX: T84.84XA Pain due to internal orthopedic prosthetic devices, implants and grafts, initial encounter (principal); Z96.651 Presence of right artificial knee joint; I10 Essential (primary) hypertension; F17.200 Nicotine dependence, unspecified, uncomplicated

== ENCOUNTER 2019-06-20 14:06 | Observation (INO) | payer MEDICARE ==
[~2019-06-20] VITALS: Ht 177.8 cm; Wt 64.1 kg
[~2019-06-20 14:06] MED LIST changes: +PHENERGAN25 M1 PO
--- NOTE | 2019-06-20 17:04 | NUR ---
REPORT CALLED TO SRINIVAS TRUONG
--- NOTE | 2019-06-20 17:30 | NUR ---
REQUESTED AND GIVEN 1MG DILAUDID SLOW IVP. IV TO RIGHT FOREARM SWOLLEN, D/C WITH CATHETER INTACT. RESITED TO LEFT AC AFTER 3 ATTEMPTS WITH 22G. TOLERATED WELL.
--- NOTE | 2019-06-20 17:45 | NUR ---
RECEIVED TO ROOM 2237 VIA WC FROM ER. ALERT AND ORIENTED X3. SKIN IS INTACT WITHOUT REDNESS, HEALING INCISION TO RIGHT KNEE. KNEE IS VERY WARM TO THE TOUCH. DENIES NEEDS.
[2019-06-20 17:54] VITALS: BMI 20.2
--- NOTE | 2019-06-20 19:48 | NUR ---
NO CHANGES AT THIS TIME. DENIES NEEDS.
--- NOTE | 2019-06-20 20:00 | NUR ---
ASSESSMENT PER FLOWSHEET. IV PATENT LEFT AC OF NS AT 75CC'S/HR. RT KNEE INCISION HEALING WITH PARTIAL STERI STRIPS NOTED SKIN WARM TO TOUCH.
--- NOTE | 2019-06-20 20:24 | NUR ---
C/O PAIN RT LEG ACHING DILAUDID 1MG IVPS GIVEN FOR PAIN CONTROL.
[2019-06-20 20:34] VITALS: BP 161/80
--- NOTE | 2019-06-20 21:00 | NUR ---
C/O NAUSEA ZOFRAN 4MG IVP GIVEN FOR NAUSEA. NO EMESIS NOTED.
--- NOTE | 2019-06-21 | NUR ---
C/O PAIN RT KNEE PT HAS BEEN UP TO BATHROOM A FEW TIMES VOIDS WELL.DILAUDID 1 MG IVPS GIVEN FOR PAIN CONTROL.
[2019-06-21 01:22] VITALS: BP 138/86
--- NOTE | 2019-06-21 02:49 | NUR ---
C/O PAIN RT KNEE INCISION DILAUDID 1MG IVPS FOR PAIN CONTROL.
--- NOTE | 2019-06-21 03:00 | NUR ---
PATIENT NOW WANTING W/C TO GO OUTSIDE TO SMOKE. INFORMED PATIENT SHE HAS JUST RECEIVED PAIN MED AND MD DOES NOT WANT HER WALKING OR GOING OFF THE FLOOR. DOOR LEFT OPENED AT PATIENT'S REQUEST.
[2019-06-21 05:18] VITALS: BP 141/84
--- NOTE | 2019-06-21 05:26 | NUR ---
EYES CLOSED RESWPIRATIONS WITH EASE AND UNLABORED.
--- NOTE | 2019-06-21 07:41 | NUR ---
AWAKE AND ALERT. ORIENTED X3. REPORTS NO REAL PAIN RELIEF ALL PM. WILL MONITOR. UP TO BR IWTH SBA. VOIDEED CLEAR YELLOW URINE WITHOUT DIFFICUTLY. LUNGS ARE CLEAR BILATERALLY, NO COUGH NOTED. SKIN IS INTACT WITHOUT REDNESS. INCISION TO RIGHT KNEE IS ALMOST HEALED, THE KNEE IS WARM TO TOUCH BUT LESS SO THAN YESTERDAY. IV TO LEFT AC IS PATENT WITHOUT REDNESS AT INSERTION SITE. DENIES NEEDS.
--- NOTE | 2019-06-21 08:05 | NUR ---
REQUESTED AND GIVEN 1MG DILAUDID SLOW IVP FOR C/O RIGHT KNEE PAIN LEVEL 9. WILL MONITOR.
--- NOTE | 2019-06-21 08:15 | NUR ---
REQUESTED AND GIVEN 1MG DILAUDID SLWO IVP FOR C/O RIGHT KNEE PAIN LEVEL 8. WILL MONITOR.
--- NOTE | 2019-06-21 08:19 | NUR ---
REQUESTED AND GIVNE 1MG DILAUDID SLOW IVP FOR C/O RIGHT KNEE PAIN LEVEL 10. WILL MONITOR
[2019-06-21 08:57] VITALS: BP 144/84
--- NOTE | 2019-06-21 10:15 | NUR ---
REQUESTED AND FLAVIO 1MG DILAUDID SLOW IVP FOR C/O RIGHT KNEE PAIN LEVEL 9. REPORTS VERY LITTLE RELIEF WITH USE OF DILAUDID. WILL CONTINUE TO MONITOR.
[2019-06-21 16:13] LABS: BASOPHILS 0.3 % (0-2); EOSINOPHILS 6.8 % (0-7); HEMATOCRIT 33.5 % (36.0-48.0); HEMOGLOBIN 10.9 g/dL (12-16); IMMATURE GRANULOCYTES 0.2 % (0-5); LYMPHOCYTES 32.6 % (15-50); MCH 29.7 pg (26.0-34.0); MCHC 32.5 g/dL (31.0-37.0); MCV 91.3 fL (80.0-100.0); MEAN PLATELET VOLUME 8.2 fL (7.4-10.4); MONOCYTES 10.6 % (2-11); NEUTROPHILS 49.5 % (40-80); RBC 3.67 10x6/uL (4.00-5.40); RDW 13.6 % (11.5-14.5); WBC 6.2 10x3/uL (4.8-10.8)
[2019-06-21 16:27] LABS: PLATELET COUNT 361 10x3/uL (130-400)
[2019-06-21 16:35] LABS: CALC OSMOLALITY 278 mosm/kg (275-300); CALCIUM 7.9 mg/dL (8.5-10.1); CARBON DIOXIDE 26.9 mmol/L (21.0-32.0); CHLORIDE - SERUM 106 mmol/L (98-107); CREATININE - SERUM 0.7 mg/dL (0.6-1.3); GLUCOSE 117 mg/dL (74-106); POTASSIUM - SERUM 3.9 mmol/L (3.5-5.1); SODIUM 140 mmol/L (136-145); UREA NITROGEN 9 mg/dL (7-18); eGFR NON AFRICAN AMERICAN > 90 mL/min (90-120)
[2019-06-21 16:43] VITALS: Ht 177.8 cm; Wt 64.1 kg
[2019-06-21 19:07] VITALS: BP 124/83
--- NOTE | 2019-06-21 20:00 | NUR ---
ASSESSMENT PER FLOWSHEET. IV PATENT LEFT ARM OF NS AT 50CC'S/HR. RT KNEE INCISION HEALING WITH FEW STERI STRIPS. SR UP X2 CALL LIGHT WITHIN REACH. DENIES NEEDS.
[2019-06-21 21:41] LABS: UDS - AMPHET POSITIVE QUAL (NEGATIVE); UDS - BARB NEGATIVE QUAL (NEGATIVE); UDS - BENZO NEGATIVE QUAL (NEGATIVE); UDS - COCAINE NEGATIVE QUAL (NEGATIVE); UDS - OPIATE POSITIVE QUAL (NEGATIVE); UDS - PCP NEGATIVE QUAL (NEGATIVE); UDS - THC NEGATIVE QUAL (NEGATIVE)
[2019-06-21 21:42] LABS: APPEARANCE CLEAR (CLEAR); BILIRUBIN NEGATIVE (NEGATIVE); COLOR YELLOW (YELLOW); GLUCOSE NEGATIVE (NEGATIVE); KETONE NEGATIVE (NEGATIVE); NITRITE NEGATIVE (NEGATIVE); PROTEIN NEGATIVE (NEGATIVE); SPECIFIC GRAVITY 1.015 (1.005-1.020); UROBILINOGEN NORMAL (NORMAL)
--- NOTE | 2019-06-21 22:00 | NUR ---
RESTING QUIETLY DENIES NEEDS.
[2019-06-21 22:08] VITALS: BP 134/87
--- NOTE | 2019-06-22 00:03 | NUR ---
EYES CLOSED RESPIRATIONS WITH EASE AND UNLABORED.
[2019-06-22 00:50] VITALS: BP 154/94
[2019-06-22 05:34] VITALS: BP 163/92
[2019-06-22 06:08] LABS: BASOPHILS 0.4 % (0-2); EOSINOPHILS 4.5 % (0-7); HEMATOCRIT 33.7 % (36.0-48.0); HEMOGLOBIN 11.1 g/dL (12-16); IMMATURE GRANULOCYTES 0.2 % (0-5); LYMPHOCYTES 27.3 % (15-50); MCH 29.8 pg (26.0-34.0); MCHC 32.9 g/dL (31.0-37.0); MCV 90.3 fL (80.0-100.0); MEAN PLATELET VOLUME 8.4 fL (7.4-10.4); MONOCYTES 9.1 % (2-11); NEUTROPHILS 58.5 % (40-80); PLATELET COUNT 355 10x3/uL (130-400); RBC 3.73 10x6/uL (4.00-5.40); RDW 13.5 % (11.5-14.5); WBC 5.5 10x3/uL (4.8-10.8)
[2019-06-22 06:21] LABS: CALC OSMOLALITY 274 mosm/kg (275-300); CALCIUM 8.7 mg/dL (8.5-10.1); CARBON DIOXIDE 26.5 mmol/L (21.0-32.0); CHLORIDE - SERUM 105 mmol/L (98-107); GLUCOSE 109 mg/dL (74-106); SODIUM 138 mmol/L (136-145); UREA NITROGEN 7 mg/dL (7-18)
[2019-06-22 06:22] LABS: CREATININE - SERUM 0.5 mg/dL (0.6-1.3); POTASSIUM - SERUM 4.6 mmol/L (3.5-5.1); eGFR NON AFRICAN AMERICAN > 90 mL/min (90-120)
--- NOTE | 2019-06-22 08:11 | NUR ---
PT RESTING IN BED WITH EYES CLOSED. AROUSED BY VERBAL STIMULI. "WHEN IS MY PAIN MEDICINE?" EXPLAINED TO PT I WOULD LOOK IN COMPUTER AND BRING SOME IF IT WAS TIME. PT "AGREED" NO S/S OF ACUTE DISTRESS. CL IN PLACE.
[2019-06-22 09:00] VITALS: BP 140/95
[2019-06-22] MEDS ORDERED: HYDROCODON-ACE1 EA10 PO (09:06)
--- NOTE | 2019-06-22 09:46 | NUR ---
REHAB PRESCREENING Rehab referral received and chart reveiwed. Physical Theray Evaluation states patient is independent and has been receiving outpatient PT at this hospital. PT also notes they recommend Home with out patient therapy. She does not meet admission criteria for acute inpatient rehab. Thank you for this referral! Ernestina Cruz, CANAL BOAT CAPTAIN Rehab PD
--- NOTE | 2019-06-22 13:29 | NUR ---
iv dc with tip intact. DC EDUCATION AND INSTRUCTIONS WENT OVER WITH PT. SCRIPT FOR [place] SENT WITH PT. ALL BELONGINGS CARRIED DOWN BY MOTHER. PT AMBULATED WITH RW OFF FLOOR BY MY SIDE. STEADY GAIT NOTED. NO S/S OF ACUTE DISTRESS.
== END 2019-06-22 13:36 | disposition home or self-care (01) ==
LOC: D.ER 14:06 → D.MS 16:52 → OBSVTIME 16:52 → D.MS 06-22 13:36
PROVIDERS: Internal Medicine Nephrology; ADMIT Orthopaedic Surgery; ATTEND Orthopaedic Surgery
DX: M25.461 Effusion, right knee (principal); F17.213 Nicotine dependence, cigarettes, with withdrawal; I10 Essential (primary) hypertension; D64.9 Anemia, unspecified; F15.90 Other stimulant use, unspecified, uncomplicated; G89.18 Other acute postprocedural pain

== ENCOUNTER 2019-06-26 12:38 | Emergency (ER) | payer MEDICARE ==
[~2019-06-26] VITALS: Ht 177.8 cm; Wt 65.9 kg
[~2019-06-26 12:38] MED LIST changes: +HYDROCODON-ACE1 EA10 PO
[2019-06-26 12:39] VITALS: Ht 177.8 cm; Wt 65.9 kg
[2019-06-26 13:20] LABS: BASOPHILS 0.4 % (0-2); EOSINOPHILS 2.2 % (0-7); HEMATOCRIT 39.9 % (36.0-48.0); IMMATURE GRANULOCYTES 0.1 % (0-5); LYMPHOCYTES 25.7 % (15-50); MCH 30.5 pg (26.0-34.0); MCHC 32.6 g/dL (31.0-37.0); MCV 93.7 fL (80.0-100.0); MEAN PLATELET VOLUME 8.2 fL (7.4-10.4); NEUTROPHILS 64.6 % (40-80); PLATELET COUNT 354 10x3/uL (130-400); RBC 4.26 10x6/uL (4.00-5.40); RDW 13.4 % (11.5-14.5); WBC 7.4 10x3/uL (4.8-10.8)
[2019-06-26 13:34] LABS: ALBUMIN 3.5 g/dL (3.4-5.0); ALKALINE PHOSPHATASE 110 U/L (46-116); ALT (SGPT) 22 U/L (10-68); BILIRUBIN - TOTAL 0.19 mg/dL (0.2-1.3); CALC OSMOLALITY 273 mosm/kg (275-300); CALCIUM 8.8 mg/dL (8.5-10.1); CARBON DIOXIDE 29.5 mmol/L (21.0-32.0); CHLORIDE - SERUM 103 mmol/L (98-107); CREATININE - SERUM 0.5 mg/dL (0.6-1.3); GLUCOSE 82 mg/dL (74-106); POTASSIUM - SERUM 4.7 mmol/L (3.5-5.1); PROTEIN - SERUM 6.6 g/dL (6.4-8.2); SODIUM 138 mmol/L (136-145); UREA NITROGEN 10 mg/dL (7-18); eGFR NON AFRICAN AMERICAN > 90 mL/min (90-120)
[2019-06-26 14:31] LABS: ERYTHROCYTE SEDIMENTATION RATE 5 mm/hr (0-20)
[2019-06-26] MEDS ORDERED: ZOFRAN4 MG PO (14:56)
[2019-06-26 15:29] VITALS: BP 145/96
== END 2019-06-26 15:29 | disposition home or self-care (01) ==
LOC: D.ER 12:38
PROVIDERS: Family Medicine
DX: G89.18 Other acute postprocedural pain (principal); R60.0 Localized edema; Z76.5 Malingerer [conscious simulation]

== ENCOUNTER 2019-06-27 12:01 | Emergency (ER) | payer MEDICARE ==
[2019-06-26 12:39] VITALS: BMI 20.8
== END 2019-06-27 12:13 | disposition left against medical advice (07) ==
LOC: D.ER 12:01
DX: G89.18 Other acute postprocedural pain (principal)

== ENCOUNTER 2019-07-11 08:58 | Emergency (ER) | payer MEDICARE ==
[~2019-07-11] VITALS: Ht 177.8 cm; Wt 65.0 kg
[2019-07-11 09:02] VITALS: Ht 177.8 cm; Wt 65.0 kg
[2019-07-11 09:22] LABS: APPEARANCE CLEAR (CLEAR); BILIRUBIN NEGATIVE (NEGATIVE); COLOR YELLOW (YELLOW); GLUCOSE NEGATIVE (NEGATIVE); KETONE NEGATIVE (NEGATIVE); NITRITE NEGATIVE (NEGATIVE); PROTEIN NEGATIVE (NEGATIVE); SPECIFIC GRAVITY 1.015 (1.005-1.020); UROBILINOGEN NORMAL (NORMAL)
[2019-07-11 09:51] LABS: BASOPHILS 0.3 % (0-2); EOSINOPHILS 2.3 % (0-7); HEMATOCRIT 43.6 % (36.0-48.0); HEMOGLOBIN 14.2 g/dL (12-16); IMMATURE GRANULOCYTES 0.1 % (0-5); LYMPHOCYTES 30.2 % (15-50); MCH 30.1 pg (26.0-34.0); MCHC 32.6 g/dL (31.0-37.0); MCV 92.4 fL (80.0-100.0); MEAN PLATELET VOLUME 8.5 fL (7.4-10.4); MONOCYTES 6.9 % (2-11); NEUTROPHILS 60.2 % (40-80); PLATELET COUNT 296 10x3/uL (130-400); RBC 4.72 10x6/uL (4.00-5.40); RDW 13.1 % (11.5-14.5); WBC 7.1 10x3/uL (4.8-10.8)
[2019-07-11 10:02] LABS: ALKALINE PHOSPHATASE 112 U/L (46-116); ALT (SGPT) 19 U/L (10-68); AMYLASE - SERUM 31 U/L (25-115); BILIRUBIN - TOTAL 0.35 mg/dL (0.2-1.3); CALC OSMOLALITY 276 mosm/kg (275-300); CALCIUM 9.3 mg/dL (8.5-10.1); CARBON DIOXIDE 28.8 mmol/L (21.0-32.0); CHLORIDE - SERUM 102 mmol/L (98-107); CREATININE - SERUM 0.4 mg/dL (0.6-1.3); GLUCOSE 96 mg/dL (74-106); LIPASE 135 U/L (73-393); POTASSIUM - SERUM 4.1 mmol/L (3.5-5.1); PROTEIN - SERUM 7.5 g/dL (6.4-8.2); SODIUM 139 mmol/L (136-145); UREA NITROGEN 11 mg/dL (7-18); eGFR NON AFRICAN AMERICAN > 90 mL/min (90-120)
[2019-07-11] MEDS ORDERED: ZOFRAN ODT4 MG/UDTAB PO (10:09)
[2019-07-11] MEDS ORDERED: DILAUDID4 MG PO (10:09)
[2019-07-11 10:19] VITALS: BP 175/103
== END 2019-07-11 10:26 | disposition home or self-care (01) ==
LOC: D.ER 08:58
PROVIDERS: Emergency Medicine
DX: M25.561 Pain in right knee (principal); R10.9 Unspecified abdominal pain; R11.10 Vomiting, unspecified; F17.200 Nicotine dependence, unspecified, uncomplicated

== ENCOUNTER 2019-08-20 11:47 | Emergency (ER) | payer MEDICARE ==
[~2019-08-20] VITALS: Ht 177.8 cm; Wt 64.1 kg
[~2019-08-20 11:47] MED LIST changes: +ZOFRAN ODT4 MG/UDTAB PO
[2019-08-20 11:58] VITALS: Ht 177.8 cm; Wt 64.1 kg
[2019-08-20 15:11] LABS: BASOPHILS 0.3 % (0-2); HEMATOCRIT 43.1 % (36.0-48.0); HEMOGLOBIN 14.1 g/dL (12-16); IMMATURE GRANULOCYTES 0.1 % (0-5); LYMPHOCYTES 38.9 % (15-50); MCH 29.8 pg (26.0-34.0); MCHC 32.7 g/dL (31.0-37.0); MCV 91.1 fL (80.0-100.0); MEAN PLATELET VOLUME 8.7 fL (7.4-10.4); MONOCYTES 6.8 % (2-11); NEUTROPHILS 50.9 % (40-80); PLATELET COUNT 256 10x3/uL (130-400); RBC 4.73 10x6/uL (4.00-5.40); RDW 13.5 % (11.5-14.5); WBC 7.4 10x3/uL (4.8-10.8)
[2019-08-20 16:33] VITALS: BP 137/86
== END 2019-08-20 16:34 | disposition home or self-care (01) ==
LOC: D.ER 11:47
PROVIDERS: Emergency Medicine
DX: M25.561 Pain in right knee (principal)

== ENCOUNTER 2019-09-03 07:37 | Emergency (ER) | payer MEDICARE ==
[~2019-09-03] VITALS: Ht 177.8 cm; Wt 65.9 kg
[2019-09-03 07:39] VITALS: Ht 177.8 cm; Wt 65.9 kg
[2019-09-03] MEDS ORDERED: AUGMENTIN 875-11 TAB PO (07:50)
[2019-09-03 08:25] VITALS: BP 142/78
== END 2019-09-03 08:25 | disposition home or self-care (01) ==
LOC: D.ER 07:37
DX: J01.00 Acute maxillary sinusitis, unspecified (principal); E86.0 Dehydration; G89.18 Other acute postprocedural pain; M25.561 Pain in right knee

== ENCOUNTER 2019-10-08 10:01 | Emergency (ER) | payer MEDICARE ==
[~2019-10-08] VITALS: Ht 177.8 cm; Wt 63.6 kg
[~2019-10-08 10:01] MED LIST changes: +AUGMENTIN 875-11 TAB PO
[2019-10-08 10:08] VITALS: Ht 177.8 cm; Wt 63.6 kg
[2019-10-08] MEDS ORDERED: ATIVAN0.5 MG PO (12:06)
[2019-10-08] MEDS ORDERED: ZOFRAN ODT4 MG/UDTAB PO (12:08)
[2019-10-08 12:17] VITALS: BP 142/85
== END 2019-10-08 12:18 | disposition home or self-care (01) ==
LOC: D.ER 10:01
DX: M79.672 Pain in left foot (principal); F41.9 Anxiety disorder, unspecified; W20.8XXA Other cause of strike by thrown, projected or falling object, initial encounter; Y93.9 Activity, unspecified; Y92.9 Unspecified place or not applicable

== ENCOUNTER → 2019-10-10 17:01 | Outpatient (CLI) | payer MEDICARE ==
[2019-10-08 10:08] VITALS: BMI 20.1
[~2019-10-10 17:01] MED LIST changes: +ATIVAN0.5 MG PO
[2019-10-10 19:39] LABS: ERYTHROCYTE SEDIMENTATION RATE 3 mm/hr (0-20)
[2019-10-10 19:43] LABS: BASOPHILS 0.2 % (0-2); EOSINOPHILS 1.6 % (0-7); HEMATOCRIT 38.7 % (36.0-48.0); HEMOGLOBIN 12.8 g/dL (12-16); IMMATURE GRANULOCYTES 0.1 % (0-5); MCH 30.3 pg (26.0-34.0); MCHC 33.1 g/dL (31.0-37.0); MCV 91.7 fL (80.0-100.0); NEUTROPHILS 59.1 % (40-80); PLATELET COUNT 280 10x3/uL (130-400); RBC 4.22 10x6/uL (4.00-5.40); RDW 14.1 % (11.5-14.5); WBC 8.1 10x3/uL (4.8-10.8)
== END | disposition home or self-care (01) ==
LOC: D.LABREF 17:01
PROVIDERS: ATTEND Clinical Nurse Specialist Family Health
DX: M25.561 Pain in right knee (principal)

== ENCOUNTER → 2019-10-18 09:10 | Outpatient (CLI) | payer MEDICARE ==
[2019-10-08 10:08] VITALS: BMI 20.1
== END | disposition home or self-care (01) ==
LOC: D.NM 08:45
PROVIDERS: ATTEND Clinical Nurse Specialist Family Health
DX: T84.032A Mechanical loosening of internal right knee prosthetic joint, initial encounter (principal)

== ENCOUNTER 2019-10-18 10:02 | Emergency (ER) | payer MEDICARE ==
[~2019-10-18] VITALS: Ht 177.8 cm; Wt 64.1 kg
[2019-10-18 10:06] VITALS: Ht 177.8 cm; Wt 64.1 kg
[2019-10-18 10:50] VITALS: BP 148/89
== END 2019-10-18 10:51 | disposition home or self-care (01) ==
LOC: D.ER 10:02
DX: M25.561 Pain in right knee (principal)

== ENCOUNTER 2020-01-25 17:48 | Emergency (ER) | payer MEDICARE ==
[~2020-01-25] VITALS: Ht 177.8 cm; Wt 63.6 kg
[2020-01-25 17:50] VITALS: BP 124/76; Ht 177.8 cm; Wt 63.6 kg
[2020-01-25] MEDS ORDERED: ZOFRAN ODT4 MG/UDTAB PO (18:43)
== END 2020-01-25 18:50 | disposition home or self-care (01) ==
LOC: D.ER 17:48
DX: M25.561 Pain in right knee (principal); R11.0 Nausea; Z96.651 Presence of right artificial knee joint

== ENCOUNTER 2020-02-13 12:00 | Emergency (ER) | payer MEDICARE ==
[~2020-02-13] VITALS: Ht 177.8 cm; Wt 64.5 kg
[2020-02-13 12:24] VITALS: BP 139/85; Ht 177.8 cm; Wt 64.5 kg
[2020-02-13 13:15] LABS: BASOPHILS 0.1 % (0-2); EOSINOPHILS 0.6 % (0-7); HEMATOCRIT 43.9 % (36.0-48.0); HEMOGLOBIN 14.4 g/dL (12-16); IMMATURE GRANULOCYTES 0.1 % (0-5); MCH 30.4 pg (26.0-34.0); MCHC 32.8 g/dL (31.0-37.0); MCV 92.6 fL (80.0-100.0); MEAN PLATELET VOLUME 8.4 fL (7.4-10.4); MONOCYTES 6.8 % (2-11); NEUTROPHILS 70.4 % (40-80); PLATELET COUNT 234 10x3/uL (130-400); RBC 4.74 10x6/uL (4.00-5.40); RDW 13.8 % (11.5-14.5); WBC 6.8 10x3/uL (4.8-10.8)
[2020-02-13 13:22] LABS: ANION GAP 13.1 mmol/L (8-16); CALCIUM 8.5 mg/dL (8.5-10.1); CARBON DIOXIDE 24.2 mmol/L (21.0-32.0); CREATININE - SERUM 1.1 mg/dL (0.6-1.3); POTASSIUM - SERUM 4.3 mmol/L (3.5-5.1)
[2020-02-13] MEDS ORDERED: ALBUTEROL SULF8.5 GM (13:23)
[2020-02-13 13:29] LABS: ALBUMIN 3.8 g/dL (3.4-5.0); BILIRUBIN - TOTAL 0.25 mg/dL (0.2-1.3); PROTEIN - SERUM 7.3 g/dL (6.4-8.2)
[2020-02-13 13:59] LABS: UDS - AMPHET NEGATIVE QUAL (NEGATIVE); UDS - BARB NEGATIVE QUAL (NEGATIVE); UDS - BENZO NEGATIVE QUAL (NEGATIVE); UDS - COCAINE NEGATIVE QUAL (NEGATIVE); UDS - OPIATE NEGATIVE QUAL (NEGATIVE); UDS - PCP NEGATIVE QUAL (NEGATIVE); UDS - THC NEGATIVE QUAL (NEGATIVE)
[2020-02-13 14:30] LABS: BILIRUBIN NEGATIVE (NEGATIVE); GLUCOSE NEGATIVE (NEGATIVE); KETONE SMALL mg/dL (NEGATIVE); NITRITE NEGATIVE (NEGATIVE); SPECIFIC GRAVITY 1.015 (1.005-1.020); UROBILINOGEN NORMAL (NORMAL)
== END 2020-02-13 15:08 | disposition home or self-care (01) ==
LOC: D.ER 12:00
PROVIDERS: Family Medicine
DX: M25.561 Pain in right knee (principal); R22.41 Localized swelling, mass and lump, right lower limb; Z96.651 Presence of right artificial knee joint